=== PATIENT | female | born 1950 | race Caucasian/White ===

== ENCOUNTER → 2017-11-18 | Outpatient (REF) | payer BC, MEDICARE ==
[~2017-11-18] MED LIST: FENOFIBRIC ACI135 MG PO; FISH OIL1000 MG PO; HYDROCHLOROT12.5 MG OR; HYDROCHLOROTH12.5 M1 PO; LOPID600 MG PO; LOVAZA1 GM OR; OMEPRAZOLE20 MG PO; TESSALON PER100 MG PO; TRICOR48 MG PO; ZPAK PO
[2017-11-18 10:04] LABS: ALBUMIN 4.3 g/dL (3.2-5.0); ALKALINE PHOSPHATASE 46 u/l (38-126); ANION GAP 12 (6-22 (CALC)); BILIRUBIN, TOTAL 0.4 mg/dL (0.0-1.4); BUN 25 mg/dL (8-23); BUN/CREATININE RATIO 38 (12-20 (CALC)); CALCULATED LDLCHOLESTEROL 71 mg/dL (62-129 (CALC)); CARBON DIOXIDE 27 mmol/l (22-30); CHLORIDE 107 mmol/l (95-108); CHOLESTEROL HDL RATIO 2.9 (<4.4 (CALC)); CREATININE 0.7 mg/dL (0.5-1.0); GFR > 60 ML/MIN (>=60 (CALC)); GFR FOR AFR.AMER. > 60 ML/MIN (>=60 (CALC)); HDL CHOLESTEROL 50 mg/dL (>=40); POTASSIUM 4.4 mmol/l (3.5-5.1); SGOT/AST 23 u/l (9-36); SODIUM 142 mmol/l (137-146); TOTAL CHOLESTEROL 146 mg/dl (0-199); TOTAL PROTEIN 6.9 g/dL (6.3-8.2); TOTAL TRIGLYCERIDES 129 mg/dl (30-149); VLDL CHOLESTROL 26 mg/dl (1-41 (CALC))
== END | disposition home or self-care (01) ==
LOC: LAB 08:00
PROVIDERS: ATTEND Internal Medicine
DX: I10 Essential (primary) hypertension (principal); E78.49 Other hyperlipidemia